=== PATIENT | female | born 1945 | race Caucasian/White ===

== ENCOUNTER 2018-05-12 09:44 | Day surgery (SDC) | payer MEDICARE, SELFPAY ==
[2018-05-12 10:14] VITALS: BP 136/62; PULSE 81; RESP 16; TEMP 37.5; O2SAT 98; BMI 33.3
--- NOTE | 2018-05-12 10:50 | RAD_ITS ---
STUDY: X-RAY - LEFT KNEE REASON FOR EXAM: Knee injection, genicular nerve. TECHNIQUE: 3 fluoroscopic view(s) of the knee. COMPARISON: None. FINDINGS: There is a total knee arthroplasty. There is needle placement adjacent to the distal femur and proximal tibia. 19.6 seconds of fluoroscopy time was used. Electronically Signed: Junior Metzger MD at 16:30 EDT Tel , Service support , RAD/Fluoro Guided Needle Placement
[2018-05-12] MEDS: Bupivacaine 0.25% 30 ML Vial (11:23)
[2018-05-12] MEDS: MethylPREDNISolone Acetate 80 MG/ML Vial (11:23)
[2018-05-12 11:34] VITALS: BP 118/70; BP 136/62; PULSE 73; RESP 14; TEMP 37.3; O2SAT 98
[2018-05-12 11:39] VITALS: BP 136/62; BP 136/73; PULSE 82; RESP 16; O2SAT 100
[2018-05-12 11:44] VITALS: BP 128/62; BP 136/62; PULSE 71; RESP 16; O2SAT 99
[2018-05-12 11:49] VITALS: BP 131/78; BP 136/62; PULSE 76; RESP 16; TEMP 37.2
[2018-05-12 12:05] VITALS: BP 136/62
--- NOTE | 2018-05-12 13:26 | PCM.OPRPT ---
Problem List (1) Chronic post-operative pain Status: Chronic (2) Unilateral primary osteoarthritis, left knee Status: Chronic Report of Operation Date of Procedure: 05/12/18 Pre-Operative Diagnosis: Chronic postoperative knee pain status post left total knee replacement, osteoarthritis of the left knee Post-Operative Diagnosis: Chronic postoperative knee pain status post left total knee replacement, osteoarthritis of the left knee Surgery/Procedure Performed:: Left knee superior medial, superior lateral, inferior medial genicular nerve steroid injection under fluoroscopic guidance Description of Surgical Findings:: PROCEDURE: Left knee superior medial, superior lateral, inferior medial genicular nerve steroid injection under fluoroscopic guidance PREOPERATIVE DIAGNOSIS: Chronic postoperative knee pain, osteoarthritis of the left knee POSTOPERATIVE DIAGNOSIS: Chronic postoperative knee pain, osteoarthritis of the left knee ANESTHESIA: MAC COMPLICATIONS: None BLOOD LOSS: Minimal PROCEDURE IN DETAIL: History and physical today was reviewed. Risks and benefits of the procedure were explained. The patient understood, agreed to our procedure, and informed consent was obtained. IV inserted per routine protocol. The patient was taken to the operating room, placed in a supine position the left knee area was prepped and draped in a sterile fashion using iodine ?3 under fluoroscopy guidance AP view left knee joint was visualized the skin and subcutaneous tissue anesthetized approximately 5 cc of 1% lidocaine using a 25-gauge regular needle at the vicinity of the superior medial superior lateral inferior medial genicular nerves under direct physician fluoroscopy using a 22-gauge 3-1/2 inch spinal needle the needle was advanced via the skin starting at the superior medial ending at the inferior medial passing through the superior lateral genicular nerves the needle was then advanced further under direct visualization with fluoroscopy to the diaphyseal junction of each corresponding level once the tip of the needle is at the vicinity of the corresponding nerve and after confirmation of AP as well as lateral and oblique views a total of 12 cc of preservative-free 0.25% Marcaine with 80 mg of Depo-Medrol injected in divided doses between those 3 levels. The needles were then removed intact. The patient experienced no signs or symptoms intravascular injection. The patient experienced no paraesthesia. The procedure was completed without any apparent difficult, any complication. The patient appeared to tolerate well. ASSESSMENT AND PLAN: This is a 72-year-old Female with Chronic postoperative knee pain, osteoarthritis of the left knee status post left knee superior medial, superior lateral, inferior medial genicular nerve steroid injection under fluoroscopic guidance. The patient will continue her current medications. The patient will follow in approximately 2 weeks for possible repeat of the procedure if indicated.
== END 2018-05-12 12:09 | disposition home or self-care (01) ==
LOC: SDC 09:48 → AC 09:48
PROVIDERS: Family Provider Family Medicine; PCP Family Medicine; Visit Provider Anesthesiology Pain Medicine
PROC: 3E0U3GC Introduction of Other Therapeutic Substance into Joints, Percutaneous Approach (ICD-10-PCS; CPT 20610; principal; 2018-05-12 10:45)
DX: G89.28 Other chronic postprocedural pain (principal); M17.12 Unilateral primary osteoarthritis, left knee; I10 Essential (primary) hypertension; Z78.0 Asymptomatic menopausal state; Z79.899 Other long term (current) drug therapy
CPT/HCPCS: 64450; 76000; 77002; J7120

== ENCOUNTER → 2024-12-30 | Outpatient (CLI) | payer MEDICARE, SELFPAY ==
[2024-12-30 17:56] LABS: Anion Gap 10 (5-15); BUN 30 mg/dL (4-19); BUN/Creat Ratio 40.6 RATIO (10-20); Carbon Dioxide 24.6 mmol/L (21.0-32.0); Chloride 106 mmol/L (98-108); Creatinine, Serum 0.73 mg/dL (0.70-1.20); EST Glomerular Filtration Rate 83 (>60); Glucose 84 mg/dL (70-99); Sodium Level 140 mmol/L (133-145)
== END | disposition home or self-care (01) ==
LOC: BIMLAB 15:21
PROVIDERS: PCP Internal Medicine; Visit Provider Internal Medicine
DX: E87.0 Hyperosmolality and hypernatremia (principal)
CPT/HCPCS: 36415; 80048